=== PATIENT | female | born 1980 | race Caucasian/White ===

== ENCOUNTER 2020-08-23 20:37 | Emergency (ER) | payer MEDICAID ==
[~2020-08-23] VITALS: Ht 160 cm; Wt 63.5 kg
[2020-08-23 20:45] VITALS: BP 109/68
--- NOTE | 2020-08-23 23:14 | NUR ---
CALLED PT IN LOBBY, NO RESPONSE
--- NOTE | 2020-08-23 23:55 | NUR ---
JULES AT CHAIR SIDE FOR MEDICAL EVALUATION.
[2020-08-24] MEDS ORDERED: KETOROLAC 60 MG/2 ML VIAL IM ONE
[2020-08-24 00:28] VITALS: BP 111/72
--- NOTE | 2020-08-24 00:28 | NUR ---
Patient discharged with v/s stable. Written and verbal after care instructions given and explained. Patient alert, oriented and verbalized understanding of instructions. Ambulatory with steady gait. All questions addressed prior to discharge. ID band removed. Patient advised to follow up with PMD. Rx of MOTRIN & SUDAFED 12 HR given. Patient educated on indication of medication including possible reaction and side effects. Opportunity to ask questions provided and answered.
--- NOTE | 2020-08-24 00:30 | NUR ---
HUNTER [facility]PO PAC SWAB COLLECTED AND HANDED TO LAB.
== END 2020-08-24 00:28 | disposition home or self-care (01) ==
LOC: MED 20:37
DX: J32.9 Chronic sinusitis, unspecified (principal); Z20.828 Contact with and (suspected) exposure to other viral communicable diseases; F17.200 Nicotine dependence, unspecified, uncomplicated; Z98.890 Other specified postprocedural states
CPT/HCPCS: 81002; 81025; 96372; 99283; J1885; U0003

== ENCOUNTER 2021-05-02 16:44 | Emergency (ER) | payer MEDICAID ==
[~2021-05-02] VITALS: Ht 160 cm; Wt 65.8 kg
[2021-05-02 16:56] VITALS: BP 124/78
--- NOTE | 2021-05-02 16:56 | NUR ---
COVID SWAB DONE.
[2021-05-02] MEDS ORDERED: ALBUTEROL SULFATE/IPRATROPIU 3 ML SOL IH ONE ×3 (18:20→19:40)
[2021-05-02] MEDS ORDERED: predniSONE 20 MG TAB PO ONE (18:20)
[2021-05-02] MEDS ORDERED: PRED50TA2 PO (21:25)
[2021-05-02] MEDS ORDERED: ALBU0.0912 IH (21:26)
[2021-05-02 22:01] VITALS: BP 119/80
--- NOTE | 2021-05-02 22:01 | NUR ---
Patient discharged with v/s stable. Written and verbal after care instructions given and explained. Patient alert, oriented and verbalized understanding of instructions. Ambulatory with steady gait. All questions addressed prior to discharge. ID band removed. Patient advised to follow up with PMD. Rx of PROVENTIL, PREDNISONE given. Patient educated on indication of medication including possible reaction and side effects. Opportunity to ask questions provided and answered.
== END 2021-05-02 22:01 | disposition home or self-care (01) ==
LOC: MED 16:44
DX: J45.901 Unspecified asthma with (acute) exacerbation (principal); F17.200 Nicotine dependence, unspecified, uncomplicated; Z71.6 Tobacco abuse counseling; Z20.822 Contact with and (suspected) exposure to COVID-19
CPT/HCPCS: 71045; 87426; 94640; 99285; J7512

== ENCOUNTER 2022-12-18 15:14 | Emergency (ER) | payer MEDICAID ==
[~2022-12-18] VITALS: Ht 160 cm; Wt 68.0 kg
[~2022-12-18 15:14] MED LIST: ALBU0.0912 IH; PRED50TA2 PO
[2022-12-18] MEDS ORDERED: DEXAMETHASONE 10 MG/ML VIAL IM ONE (15:20)
[2022-12-18] MEDS ORDERED: ALBUTEROL SULFATE/IPRATROPIU 3 ML SOL IH ONE ×3 (15:20→16:50)
[2022-12-18 15:22] VITALS: BP 126/108
[2022-12-18] MEDS ORDERED: DEC4 PO (16:47)
[2022-12-18] MEDS ORDERED: ALBU0.0912 INH (16:47)
[2022-12-18] MEDS ORDERED: CETI10SG1 PO (16:48)
--- NOTE | 2022-12-18 18:25 | NUR ---
ASSUMED PATIENT CARE FOR DC INSTRUCTIONS.
[2022-12-18 18:26] VITALS: BP 122/67
--- NOTE | 2022-12-18 18:26 | NUR ---
Patient discharged with v/s stable. Written and verbal after care instructions given and explained. Patient alert, oriented and verbalized understanding of instructions. Ambulatory with steady gait. All questions addressed prior to discharge. ID band removed. Patient advised to follow up with PMD. Rx of ALBUTEROL, ZYRTEC, DECADRON given. Patient educated on indication of medication including possible reaction and side effects. Opportunity to ask questions provided and answered.
== END 2022-12-18 18:26 | disposition home or self-care (01) ==
LOC: MED 15:14
DX: J45.901 Unspecified asthma with (acute) exacerbation (principal); Z79.899 Other long term (current) drug therapy
CPT/HCPCS: 71045; 94640; 96372; 99284; J1100

== ENCOUNTER 2023-08-01 12:04 | Emergency (ER) | payer MEDICAID ==
[~2023-08-01] VITALS: Ht 160 cm; Wt 69.9 kg
[~2023-08-01 12:04] MED LIST changes: +ALBU0.0912 INH; +CETI10SG1 PO; +DEC4 PO
[2023-08-01 12:07] VITALS: BP 123/82; PULSE 74; RESP 22; TEMP 98.4; O2SAT 94
[2023-08-01] MEDS ORDERED: ALBUTEROL 0.083% 2.5 MG/3 ML NEBU INH ONE (13:00)
[2023-08-01] MEDS ORDERED: predniSONE 20 MG TAB PO ONE (13:00)
[2023-08-01] MEDS ORDERED: ALBUTEROL SULFATE/IPRATROPIU 3 ML SOL IH ONE (13:00)
[2023-08-01 13:04] LABS: BASOPHILS # (AUTO) 0.1 K/uL (0.00-0.22); EOSINOPHILS # (AUTO) 0.6 K/uL (0-0.4); EOSINOPHILS % (AUTO) 9.4 % (0.0-4.0); HEMATOCRIT 41.1 % (36-48); HEMOGLOBIN 14.2 g/dL (12.0-16.0); LYMPHOCYTES # (AUTO) 2.5 K/uL (2.5-16.5); LYMPHOCYTES % (AUTO) 38.6 % (20.5-51.1); MEAN CORPUSCULAR HEMOGLOBIN 34 pg (27-31); MEAN CORPUSCULAR HGB CONC 35 g/dL (33-37); MEAN CORPUSCULAR VOLUME 97.2 fL (80-94); MONOCYTES # (AUTO) 0.4 K/uL (0.8-1.0); MONOCYTES % (AUTO) 6.3 % (1.7-9.3); NEUTROPHILS # (AUTO) 2.9 K/uL (1.8-7.7); NEUTROPHILS % (AUTO) 44.7 % (42.2-75.2); PLATELET COUNT (AUTO) 264 K/uL (140-450); RED BLOOD CELL COUNT(AUTO) 4.23 MIL/uL (4.20-5.40); RED CELL DISTRIBUTION WIDTH 13.1 % (11.6-13.7); WHITE BLOOD COUNT (AUTO) 6.5 K/uL (4.8-10.8)
[2023-08-01] MEDS ORDERED: PRED20TA5 PO (13:08)
[2023-08-01] MEDS ORDERED: ATA25 PO (13:08)
[2023-08-01 13:11] LABS: ANION GAP 16.2 (8-16); CALCIUM 9.2 mg/dL (8.5-10.1); CARBON DIOXIDE 24.9 mmol/L (21-32); CREATININE 0.6 mg/dL (0.6-1.3); POTASSIUM 4.1 mmol/L (3.5-5.1)
[2023-08-01 13:13] VITALS: PULSE 68; RESP 16; O2SAT 98
[2023-08-01 13:46] VITALS: BP 123/82; PULSE 68; RESP 16; TEMP 98.4; O2SAT 98
== END 2023-08-01 13:46 | disposition home or self-care (01) ==
LOC: MED 12:04
DX: J45.909 Unspecified asthma, uncomplicated (principal); F41.9 Anxiety disorder, unspecified; F17.200 Nicotine dependence, unspecified, uncomplicated; Z90.49 Acquired absence of other specified parts of digestive tract; Z98.890 Other specified postprocedural states; Z79.899 Other long term (current) drug therapy
CPT/HCPCS: 36415; 71045; 80048; 85025; 94640; 99284; J7512; J7613

== ENCOUNTER 2023-08-29 21:49 | Emergency (ER) | payer MEDICAID ==
[~2023-08-29] VITALS: Ht 160 cm; Wt 65.8 kg
[~2023-08-29 21:49] MED LIST changes: +ATA25 PO; +PRED20TA5 PO
[2023-08-29 22:13] VITALS: BP 120/83; PULSE 98; RESP 20; TEMP 98.1; O2SAT 99
[2023-08-29] MEDS ORDERED: ALBUTEROL SULFATE/IPRATROPIU 3 ML SOL IH ONE ×2 (23:00→23:40)
[2023-08-29 23:11] VITALS: PULSE 92; RESP 18; O2SAT 98
[2023-08-29] MEDS ORDERED: predniSONE 20 MG TAB PO ONE (23:40)
[2023-08-29] MEDS ORDERED: ACETAMINOPHEN 325 MG TAB PO ONE (23:40)
[2023-08-29 23:58] VITALS: PULSE 82; RESP 18; O2SAT 96
[2023-08-30] MEDS ORDERED: PRED20TA5 PO ×2 (00:13→00:17)
[2023-08-30] MEDS ORDERED: ALBU0.0912 IH ×2 (00:13→00:17)
[2023-08-30 00:23] VITALS: BP 120/83; PULSE 82; RESP 16; TEMP 98.1; O2SAT 99
== END 2023-08-30 00:26 | disposition home or self-care (01) ==
LOC: MED 21:49
DX: J45.901 Unspecified asthma with (acute) exacerbation (principal); Z79.899 Other long term (current) drug therapy
CPT/HCPCS: 71045; 94640; 99284; J7512